=== PATIENT | female | born 1980 | race Caucasian/White ===

== ENCOUNTER 2019-09-04 22:42 | Emergency (ER) | payer OTHER ==
[~2019-09-04] VITALS: Ht 167.6 cm; Wt 63.5 kg
[2019-09-05] MEDS ORDERED: HYDROcodone-ACET 5/325MG TAB PO ONE
[2019-09-05 02:00] VITALS: BP 118/72
== END 2019-09-05 03:52 | disposition home or self-care (01) ==
LOC: EDBD 22:42 → ER 22:46
DX: S00.83XA Contusion of other part of head, initial encounter (principal); F10.129 Alcohol abuse with intoxication, unspecified; Y08.89XA Assault by other specified means, initial encounter; Y93.89 Activity, other specified; Y99.8 Other external cause status; Y92.89 Other specified places as the place of occurrence of the external cause
CPT/HCPCS: 36415; 70450; 70486; 72125; 84702